=== PATIENT | male | born 1935 | race Caucasian/White ===

== ENCOUNTER 2016-10-05 13:53 | Inpatient (IN) | payer MEDICARE ==
--- NOTE | ~2016-10-05 | CN ---
Consultation Report [facility] [place] [address] [place]. [address] NAME: JARROD DOUGLAS : 35 STATUS : ADM IN PAT#: [id number] AGE: 81 ADM/REG DATE : 10/05/16 MR#: [id number] REPORT SERV DATE: 10/07/16 DICTATED BY: CHRISTIANO MOE III DATE: 10/07/16 REPORT STATUS : Draft TRANSCRIBED BY: MODWilner DATE: 10/07/16 DATE OF CONSULTATION: 10/07/2016 REASON FOR CONSULT: Incomplete emptying of the bladder. HISTORY OF PRESENT ILLNESS: The patient is an 81-year-old gentleman, who has had a history of a prior stroke approximately this time last year. He awoke and had slurred speech and was brought to the emergency room. An MRI was ordered, however, apparently he refused it. CT of the brain was done showing atrophy and apparently no new lesions. He was transferred down to the first floor after his Pearl catheter was removed. I could not find out the original volume, but he was apparently confused and large volume was obtained. His catheter was removed last night and he has had two in and out cath with 400 or greater mL. He was fairly alert, but could not give a detailed history. On history, he had a prostate biopsy in 1999, at which time, his prostate was sizable at 60 mL in volume. He has seen someone in our group, but I could not find a chart. He did not recognize me. He is on Cardura 8 mg, which is pretty much the equivalent of Flomax. He cannot tell me how long he had been on this. His voiding history was difficult to obtain. Apparently, he is up once a night and voids frequently during the daytime. I could not get much more detail than that. He has had no gross hematuria. Denies any recent dysuria or UTIs. His urine, however, today had greater than 182 rbc's and wbc's. Leukocyte esterase was elevated. Bacteria were occasional. PAST MEDICAL HISTORY: Includes diabetes, insulin dependent; hypertension; glaucoma; and prior stroke. He has had no major surgery other than the prostate biopsy to my knowledge. SOCIAL HISTORY: He does not drink or smoke. ALLERGIES: KEFLEX AND BETA BLOCKERS. MEDICATIONS: Reviewed and in the chart and a 10-point review of systems was done, although it was somewhat compromised by his memory. PHYSICAL EXAMINATION: GENERAL: He was alert, somewhat oriented, again could not give me good details. VITAL SIGNS: His most current vital signs were blood pressure 125/60, respirations 18, and pulse of 82. HEENT: Unremarkable. NECK: Supple. LUNGS: Clear. HEART: Had a regular rate and rhythm without murmur or gallop. ABDOMEN: Soft, protuberant. Bowel sounds were present and active. No masses were detected. The bladder was not palpable. GENITOURINARY: Testicles were atrophic. Phallus had a normal meatus, glans, and shaft. Anal sphincter tone was tight. I could not palpate the entire prostate, but it does feel fairly large. No rectal masses were detected. There was minimal pedal edema. Consultation Report [address] [place]. [address] NAME: JARROD DOUGLAS : 35 STATUS : ADM IN [facility]#: [id number] AGE: 81 ADM/REG DATE : 10/05/16 MR#: [id number] REPORT SERV DATE: 10/07/16 DICTATED BY: CHRISTIANO MOE III DATE: 10/07/16 REPORT STATUS : Draft TRANSCRIBED BY: MODWilner DATE: 10/07/16 His most recent lab shows a white count of 11.2. Electrolytes are normal. CT of the abdomen and pelvis has been ordered, but apparently has not been taken. IMPRESSION: Impression is that of an elderly gentleman with large prostate, probably with pre-existing benign prostatic hypertrophy-type symptoms. He now is not emptying. He has been started on Plavix by Neurology and clean intermittent catheterization. Given the fact that his urine is inflammatory, I would defer a Pearl for the next day or two until we get a culture back and make sure the Levaquin he is on will cover the infection. There is also a greater risk, I think, with repetitive catheterizations in a patient with a large prostate and on Plavix. Unfortunately, Pearl trauma can occur as well, but I would rather him be drained until we are certain that we have a culture specific antibiotic. We will follow him and someone in our group will see him in the morning. Thank you for the consult. OB/MODL Christiano Moe III, M.D. / [id number] CC: Sonya Solorzano M.D.
--- NOTE | ~2016-10-05 | CN ---
Consultation Report [facility] [address] [place]. [address] NAME: JARROD DOUGLAS : 35 STATUS : ADM Adrianne PAT#: [id number] AGE: 81 ADM/REG DATE : 10/05/16 MR#: [id number] REPORT SERV DATE: 10/06/16 DICTATED BY: DATE: REPORT STATUS : Draft TRANSCRIBED BY: MODL DATE: 10/06/16 NEUROLOGY CONSULTATION DATE OF CONSULTATION: 10/06/2016 REASON FOR CONSULT: Dysarthria. Concern for stroke. HISTORY OF PRESENT ILLNESS: This is an 81-year-old male who presented to [facility] on 10/05/2016. The patient woke up at roughly 7 a.m., was noted to have dysarthria with slurred speech as well as difficulty getting the words out. The patient's symptoms subsequently improved but is not completely resolved. The patient, when talking, family noticed that the patient still was noted to have slurred speech and periodically have problem getting words out, especially when the patient is talking fast, otherwise the patient and family members denies any focal weakness or numbness. Denies any diplopia and denies any vertigo symptoms. The patient did have similar events around 2010 with the patient noted to have a history of hemorrhage that has subsequently improved by imaging studies. The patient at baseline ambulates with a walker for the past [id number] and a half. The patient denies any changes in medication and denies any recent illness, fever, chills, nausea, vomiting, chest pain, or shortness of breath. The patient and family members deny any worsening of gait. PAST MEDICAL HISTORY: Significant for hypertension, diabetes, as well as glaucoma with the patient noted to have decreased vision in bilateral eyes; history of stroke and intracranial hemorrhage as well as benign prostatic hypertrophy. SOCIAL HISTORY: Denies current tobacco, alcohol, or recreational drug usage. ALLERGIES: THE PATIENT REPORTS ALLERGY TO KEFLEX WELL BETA SALVADOR. HOME MEDICATIONS: Consist of aspirin; p.r.n. Tylenol; Norvasc; calcium carbonate; docusate; Cardura; Glucotrol; Xalatan; Glucophage; Benicar; Prilosec; lactose timolol; and vitamins. FAMILY HISTORY: Significant for coronary artery disease as well as cancer. REVIEW OF SYSTEMS: Negative except for those mentioned in the HPI. PHYSICAL EXAMINATION: VITAL SIGNS: At the time of evaluation, the patient was noted to have vital signs with T- max of 98.1, heart rate of 66 to 98, respirations of 16 to 25, and blood pressure of 160 to 193 over 73 to 92. GENERAL: The patient is well developed, well nourished, in no acute distress. CARDIOVASCULAR EXAMINATION: Regular rate and rhythm. No carotid bruits were otherwise auscultated. PULMONARY: Examination was clear to auscultation bilaterally. NEUROLOGICAL Consultation Report [facility] [id number] [place]. [address] NAME: JARROD DOUGLAS : 35 STATUS : ADM Adrianne PAT#: [id number] AGE: 81 ADM/REG DATE : 10/05/16 MR#: [id number] REPORT SERV DATE: 10/06/16 DICTATED BY: DATE: REPORT STATUS : Draft TRANSCRIBED BY: PHILIP DATE: 10/06/16 EXAMINATION: Generally, the patient is alert, oriented to person, place, year, and month. Mild dysarthria was noted, worse when the patient was stressed. The patient, in addition, was noted to have some difficulties with word-finding difficulties, but otherwise is able to follow simple and 2-step commands and the patient demonstrating intact registration, was noted to have some difficulties with recall. Cranial nerves 2 through 12, pupils equal, round, and reactive to light. Extraocular eye movement was noted to be intact with the patient noted to have diminished peripheral vision in all directions which appeared to be chronic. The patient was noted to report symmetrical sensation, was noted to have symmetrical facial expression. Midline tongue. Normal palatal movement and decreased hearing in bilateral ears. The patient demonstrated 5/5 bilateral upper extremity strength, but was noted to have mild pronator drift in bilateral upper extremities and 5/5 bilateral lower extremity strength at the time of evaluation, was noted to have symmetrical sensation bilaterally. Deep tendon reflex was 2+ throughout. Upgoing toe on bilateral plantar reflexes. The patient was unsteady when standing up. Baseline ambulates with walker. Normal [id number]-[id number] examination without ataxia. LABORATORY STUDIES: Demonstrated white blood cell count of 10.6, hemoglobin of 11.2, hematocrit of 33.3, and platelet count of 362. Chemistry panel: Sodium 142, potassium 3.7, chloride 108, bicarb of 21, BUN of 19, creatinine 1.25, glucose of 99, and calcium of 9.0. Serum magnesium 1.1. Cholesterol 200, HDL 41, LDL of 128, and triglyceride of 159. Hemoglobin A1c of 6.3. Vitamin B12 of 271, folate of 28.6, and TSH of 0.632. Urinalysis demonstrated negative leukocyte esterase, negative nitrite. CT scan of the brain was reviewed, generalized atrophy was seen, otherwise, the patient was noted to have underlying white matter diseases, no acute process was seen; previous hemorrhagic infarction in 2013 was noted to have resolved. Echocardiogram demonstrated no significant abnormalities and no apical thrombus was otherwise noted. Small PFO was visualized during the evaluation. Carotid Doppler study demonstrated no significant carotid stenosis in bilateral internal carotid arteries. IMPRESSION: Dysarthria. Concern for possible subcortical versus brainstem stroke. NIH stroke scale is 2. The patient does demonstrate mild dysarthria as well as word-finding difficulties. We are recommending outpatient speech therapy. We will also start the patient on Plavix 75 mg p.o. daily in addition to aspirin 81 mg p.o. daily. We will also start the patient on Lipitor 80 mg p.o. at bedtime. The patient refused MRI of the brain despite multiple physicians and nursing staff discussed with the patient regarding possible stay. Otherwise okay to discharge from Neuro standpoint. RECOMMENDATION: 1. Plavix 75 mg p.o. daily. 2. Lipitor 80 mg p.o. at bedtime. 3. Aspirin 81 mg p.o. daily. 4. Outpatient speech therapy. 5. Okay to discharge from Neuro standpoint. Consultation Report [address] [address] NAME: JARROD DOUGLAS : 35 STATUS : ADM Adrianne PAT#: [id number] AGE: 81 ADM/REG DATE : 10/05/16 MR#: [id number] REPORT SERV DATE: 10/06/16 DICTATED BY: DATE: REPORT STATUS : Draft TRANSCRIBED BY: PHILIP DATE: 10/06/16 [facility]/PHILIP David Gaines MD / [id number] CC: Cassandra Sonya Farris M.D.
--- NOTE | ~2016-10-05 | DS ---
Discharge Summary [facility] [address] [facility] [place]. [address] NAME: JARROD DOUGLAS : 35 STATUS : DIS IN PAT#: [id number] AGE: 81 ADM/REG DATE : 10/05/16 MR#: [id number] REPORT SERV DATE: 10/08/16 DICTATED BY: BRODY SANDOVAL DATE: 10/08/16 REPORT STATUS : Draft TRANSCRIBED BY: MODL DATE: 10/08/16 ADMISSION DATE: 10/05/2016 DISCHARGE DATE: 10/08/2016 DIAGNOSES ON ADMISSION: 1. Dysarthria, slurred speech, rule out transient ischemic attack versus cerebrovascular accident. 2. History of hypertension. 3. Diabetes type 2, non-insulin dependent. 4. History of glaucoma. 5. History of benign prostatic hypertrophy. 6. History of cerebrovascular accident in the past. DIAGNOSES ON DISCHARGE: 1. Dysarthria at home resolved. On admission, no evidence of dysarthria. 2. Hypertension, controlled. 3. Diabetes mellitus type 2 with fluctuation of blood sugars on multiple oral hypoglycemics. 4. Severely enlarged prostate, most likely benign prostatic hypertrophy, with the voiding dysfunction, discharged with Pearl. Followup with urologist, outpatient. 5. Diarrhea present on admission, resolved. 6. No evidence of urinary tract infection on the second sample taken from the newly placed catheter. 7. Hypertension, controlled. CONSULTANTS ON THE CASE: 1. Neurologist, Dr. Gaines. 2. Urologist, Dr. Christiano Hathaway. IMAGING STUDIES DONE DURING THIS HOSPITALIZATION: Chest x-ray on 10/05/2016: Mild left basilar atelectasis. Otherwise, no acute cardiopulmonary abnormality. Mild enlargement of the cardiac silhouette with evidence of previous coronary artery bypass grafting. CT of the abdomen and pelvis without contrast showed prostate enlargement measuring up to 6.3 cm in transverse diameter and 7.2 cm in craniocaudal diameter, probable BPH, although recommend correlation with PSA level. Prominent median lobe of the prostate causing extrinsic impression in the bladder base. Bladder decompressed with a Pearl catheter. No significant bladder wall thickening. Bilateral nonobstructing nephrolithiasis. A small exophytic cyst in lower pole of the right kidney. Extensive atherosclerotic calcification in abdominal aorta including dense calcified plaque origin is iliac, proximal SMA, and JEREMIAS. No abdominal aortic aneurysm. Echocardiography done on 10/06/2016 showed normal left ventricular systolic function with calculated ejection fraction of 50% to 55%. Mild diastolic dysfunction. Normal left ventricular chamber size and systolic function. Mild tricuspid regurgitation. Agitated saline contrast study consistent with small patent foraminal ovale or atrial septal defect. Discharge Summary [facility] [address] [place]. [address] NAME: JARROD DOUGLAS : 35 STATUS : DIS IN PAT#: [id number] AGE: 81 ADM/REG DATE : 10/05/16 MR#: [id number] REPORT SERV DATE: 10/08/16 DICTATED BY: BRODY SANDOVAL DATE: 10/08/16 REPORT STATUS : Draft TRANSCRIBED BY: MODL DATE: 10/08/16 Bilateral carotid ultrasound did not show any significant blockages. Category [address] of the brain without contrast done on 10/05/2016. There is evidence for significant amount of old deep white matter changes. May wish to consider an MRI followup here. There have been progressive deep white matter ischemic changes. Resolution on stabilization on a hemorrhagic infarction from 2012. HISTORY OF PRESENT ILLNESS: Briefly, this is an 81-year-old male, who was admitted by my colleague, Dr. Kathia Souza for episode of slurred speech in the morning prior admission. For the details, see history of present illness dictated by Dr. Souza on 10/05/2016. HOSPITAL COURSE: Briefly, the patient was seen next day. The patient's slurred speech completely resolved. The patient had problems with urination. He was getting up and going to the bathroom as well as he was having constant bowel movements that day. The patient had urinalysis on admission, which was negative for UTI. Then, the patient's diarrhea was very frequent, and there was a suspicion also for voiding dysfunction on this patient as well. In the same time, the patient was seen by Neurology, and Dr. Gaines recommended the patient to have an MRI of the brain, but the patient multiple times refused to have MRI of the brain. He said that he cannot tolerate MRI even with sedation, so his daughter was informed that the patient refused MRI. Dr. Gaines, neurologist, recommended the patient to be on baby aspirin and Plavix as well as she recommended the patient to be on 80 mg of Lipitor. This was discussed with the patient's daughter, and it was explained that the addition of aspirin to Plavix increases the risk of the bruisability and increases the risk of bleeding, so he have to be careful to avoid falls as well as Lipitor 80 mg, it was explained that it can cause muscular pain and weakness, and in case if the patient has muscular pain or weakness, he needs to seek medical attention. As well as it was explained to the patient's daughter that the patient needs to check his liver enzymes per Dr. Voss in four weeks since he is started on Lipitor. Because of diarrhea on that day, the patient could not be discharged and he basically stayed overnight. He was insisting to be discharged, but he was having diarrhea, so the discharge was held and the daughter also wanted the patient to stay. Eventually, the patient agreed to stay. Next day, his mood has improved. His urinalysis was rechecked by the nurse and it showed surprisingly hematuria with evidence of urinary tract infection. It was very suspicious that the sample is contaminated, so urologist was consulted because the patient still had a voiding dysfunction and episodes of going to the bathroom very often. Dr. Hathaway evaluated the patient's CT scan, so severely enlarged prostate, and he recommended Coude Pearl catheter placement, and the patient to be discharged with a Pearl catheter. In the same time, once Pearl catheter was placed, urine sample was obtained, and urine sample did not show any evidence of urinary infection. It just showed hematuria from the Pearl catheter. The patient was doing well, and Dr. Hathaway recommended the patient to be discharged with a Pearl catheter placement of the home health to take care of the Pearl catheter as well as to follow up with him in 7 to 10 days. The patient was explained that he had to keep Pearl catheter in because he will not be able to void. He was not very happy about it, but subsequently he agreed to have Pearl catheter since he will not go to the Discharge Summary [address] [address] NAME: JARROD DOUGLAS : 35 STATUS : DIS IN PAT#: [id number] AGE: 81 ADM/REG DATE : 10/05/16 MR#: [id number] REPORT SERV DATE: 10/08/16 DICTATED BY: BRODY SANDOVAL DATE: 10/08/16 REPORT STATUS : Draft TRANSCRIBED BY: PHILIP DATE: 10/08/16 bathroom so often. In the same time, on the next day, he was doing well, and he was afebrile, doing well, so me and Dr. Hathaway recommended the patient to be discharged today. The patient was offered inpatient rehabilitation like SNF, and his daughter also wanted the patient to stay with her, but the patient refused multiple times to go with the daughter or to go to inpatient rehab. He wanted to go home. I had a long discussion with the patient's daughter and son-in-low. They were also very concerned about the patient going to stay at his assisted living, but the patient was reluctant to go with them also. I told the patient's family that they need to find some arrangement somebody to be with him especially in the situation when has a Pearl catheter placement and his blood sugar needs to be monitored as well. Regarding the patient's diabetes, the patient is on glipizide 10 mg twice a day. He is on metformin as well as he is on Actos. He is 81 years old. He is on multiple antidiabetic medications which could potentially make him hypoglycemic. The patient was observed here inpatient and his glipizide was reduced to 5 mg a day, but his blood sugar was still elevated. We were giving him insulin sliding scale in addition to glipizide, so it was recommended to continue his morning glipizide at a dose of 10 mg a day, but it was recommended to reduce evening glipizide at 5 mg a day as well as it was explained that if the patient is having nausea, vomiting, or not eating much, his antidiabetic medication should be kept on hold because they can cause potential hypoglycemia as well as the patient is on Actos, which was recommended to restart if blood sugar will be above 200 on glipizide and also it was recommended to discuss with the patient's primary care provider, Rianna Voss M.D., regarding side effects of Actos such as potential risk of development of urinary bladder cancer and congestive heart failure. The patient's blood sugar eventually came down, it was 182 at noon, and the patient was discharged home. Also, the patient had leukocytosis this morning, although yesterday his white count was mildly elevated like 11.2, today it was 15.3, he was afebrile. I think this is related to Pearl catheter placement. He does not have urinary infection, but because of this leukocytosis, we recommended to continue Levaquin for four more days. The patient's son also reported that he had some short lasting hallucinations in visual character this morning. It was explained to them that it could be related to antibiotics, but since patient is allergic to cephalosporins, we recommended short course of Levaquin. If the patient is really intolerant of Levaquin, if the hallucinations will be increasing, we recommended to stop Levaquin and call primary care physician, Dr. Voss, to change antibiotic. Also, he needs to follow up with Dr. Rianna Voss to check his CBC next week. The patient was offered to stay one more day, but he was eager to go home. He was reluctant to stay one more day. He refused any rehab. He refused MRI of the brain. He wanted to go home, and once again I explained to the family that the patient is a fall risk as well as his blood sugar needs to be controlled, so somebody needs to stay with him, and they said that they are going to make an arrangement for somebody to stay with him. DISCHARGE MEDICATIONS: Norvasc 10 mg a day, aspirin 81 mg a day, Lipitor 80 mg a day, Cardura 8 mg a day, glipizide 10 mg in the morning and 5 mg in the evening, metformin 850 p.o. b.i.d., Xalatan eye drops daily, Benicar with HCTZ 40/12.5 p.o. daily, omeprazole 20 mg a day, calcium carbonate 500 mg a day, Tylenol 650 mg dose as needed for pain, vitamins daily, Colace 100 mg a day, Actos was recommended to restart if blood sugar is above 200 on Discharge Summary [facility] [id number] [place]. [address] NAME: JARROD DOUGLAS : 35 STATUS : DIS IN PAT#: [id number] AGE: 81 ADM/REG DATE : 10/05/16 MR#: [id number] REPORT SERV DATE: 10/08/16 DICTATED BY: BRODY SANDOVAL DATE: 10/08/16 REPORT STATUS : Draft TRANSCRIBED BY: PHILIP DATE: 10/08/16 glipizide, timolol 1 drop daily twice a day, and Levaquin 750 mg p.o. daily for four days. Check CBC per Dr. Voss next week. Check liver enzymes in four weeks per Dr. Voss. The patient was discharged with a Pearl catheter. Home health was arranged. He has an appointment with Dr. Hathaway on 10/16/2016 to decide on further Pearl catheter strategy. He has an appointment with Dr. Voss on 10/15/2016. The patient was discharged in stable condition. Once again, it was explained to the family that they need to stay with him. I spent 45 minutes on discharge. DICTATED BY: Sonya Solorzano/MODL Brody Sandoval M.D. / [id number] CC: Sonya Solorzano M.D. Oliver Benton III, M.D.
--- NOTE | ~2016-10-05 | HP ---
History And Physical [facility] [address] [place] [place]. [address] NAME: JARROD DOUGLAS : 35 STATUS : ADM Adrianne PAT#: [id number] AGE: 81 ADM/REG DATE : 10/05/16 MR#: [id number] REPORT SERV DATE: 10/05/16 DICTATED BY: KATHIA BUSH DATE: 10/05/16 REPORT STATUS : Draft TRANSCRIBED BY: MODL DATE: 10/05/16 DATE OF ADMISSION: 10/05/2016 CHIEF COMPLAINT: Slurred speech starting this morning. HISTORY OF PRESENT ILLNESS: This is a very pleasant 81 years old gentleman who does have a past medical history significant for prior stroke, history of diabetes type 2, insulin dependent, hypertension, and history of glaucoma, who has been presenting today to [facility] accompanied by his daughter with complaints of slurred speech starting this morning. According to the patient, he woke up this morning and his words were difficult to come out. He did not have any headache. No dysphagia. No double vision. No weakness or any focal deficits. No nausea or vomiting. No diarrhea or constipation. No abdominal pain. No presyncopal or syncopal episodes. No fever. No cough. No sputum production. No other complaints. It is very important to note that the patient has been using a walker and he has been very functional. His symptoms improved according to the patient, but still he has remained somewhat dysarthric and as a result, the patient has been brought to [facility] Emergency Room. Currently, the patient has been evaluated in the emergency room, and the Hospitalist Service has been asked for admission, further evaluation, and treatment. PAST MEDICAL HISTORY: Significant for hypertension, diabetes, history of glaucoma history of CVA, and BPH. PAST SURGICAL HISTORY: None. PAST SOCIAL HISTORY: Denies tobacco, alcohol, or IV drugs. ALLERGIES: HE IS ALLERGIC TO KEFLEX AND BETA BLOCKERS. FAMILY HISTORY: Significant for coronary artery disease and cancer. MEDICATIONS: At home include Tylenol, Norvasc, aspirin, calcium carbonate, docusate sodium, Cardura, Glucotrol, Xalatan ophthalmic solution, metformin, Benicar, hydrochlorothiazide, Prilosec, Actos, timolol, and multivitamins. REVIEW OF SYSTEMS: A 14-point review of systems has been obtained and pertinent positive has been listed into the history of present illness. Otherwise, negative except those underlying above. PHYSICAL EXAMINATION: VITAL SIGNS: Currently, the patient is afebrile. Blood pressure 172/59, heart rate 75, respiratory rate 17, and saturating 100% on room air. GENERAL: A very pleasant, well-developed, well-nourished gentleman, in no acute distress. NEUROLOGIC: He is alert and oriented x3. He is nonfocal. He follows all his commands appropriately. HEENT: Shows pupils equal, round, reactive to light. Extraocular movements intact. No JVD. No lymphadenopathy. No thyromegaly appreciated. History And Physical [address] [address] NAME: JARROD DOUGLAS : 35 STATUS : ADM Adrianne PAT#: [id number] AGE: 81 ADM/REG DATE : 10/05/16 MR#: [id number] REPORT SERV DATE: 10/05/16 DICTATED BY: KATHIA BSUH DATE: 10/05/16 REPORT STATUS : Draft TRANSCRIBED BY: PHILIP DATE: 10/05/16 CHEST: Eval shows bilateral air entry. Clear anteroposterior. No wheezes, crackles, or rhonchi appreciated. CARDIOVASCULAR: He has regular rate and rhythm. S1, S2 positive. No S3, no S4. No murmurs, rubs, or gallops appreciated. ABDOMEN: Soft with positive bowel sounds. Nontender. No guarding. No rebound. EXTREMITIES: No clubbing, cyanosis, or edema. NEUROLOGIC: He is alert and oriented x3. He is dysarthric. He does have slurred speech. Cranial nerves are intact. He follows all his commands appropriately. LABORATORY DATA: Labs from today include sodium 142, potassium 4.1, chloride 106, CO2 of 23, BUN 19, creatinine 1.22, and glucose is 236. His total bilirubin is 0.4, alkaline phosphatase 71, ALT 14, AST 16, troponin I less than 0.02. His white count is 10.9, his hemoglobin is 11.3, hematocrit 33.8, and platelets are 349. His INR is 1. His UA performed in the emergency room has been negative. His EKG has shown that he is normal sinus rhythm. No acute ST-T changes. His chest x-ray, portable, performed in the emergency room shows some mild basilar atelectasis. No acute abnormalities and mild enlarged cardiac silhouette. CT of the brain without contrast showed some significant amount of old white deep matter changes progressive and prior resolution and stabilization of nonhemorrhagic infarction from 2013. ASSESSMENT AND PLAN: This is a very pleasant 81 years old gentleman with 1. Dysarthria, rule out TIA versus CVA. 2. History of hypertension. 3. Diabetes type 2, noninsulin dependent. 4. History of glaucoma. 5. History of BPH. 6. History of CVA. PLAN: 1. The patient is going to be admitted to Hospitalist Service. We are going to place him on a full aspirin and order an MRI of the brain, 2D echo, and carotid ultrasound. We are going to rule out for NC by serial cardiac enzymes, serial EKGs. Consult Neurology, Dr. Gaines. Check on vitamin B12, folic acid, hemoglobin A1c, and a fasting lipid profile. 2. Hypertension. We will continue his home medications. Provide p.r.n. hydralazine as needed. 3. Diabetes type 2, noninsulin dependent. We are going to place him on diabetic diet, Accu- Cheks before meals and at bedtime, and sliding scale insulin subcutaneously level 2. Hold the metformin and Actos and Glucotrol for right now. 4. Glaucoma. We are going to continue home medications. 5. We will provide reasonable pain, nausea control, GI and DVT prophylaxis. That has been discussed extensively with the patient as well as the patient's family. All the questions have been answered in full. Further workup and recommendation pending. It is worthwhile to note that patient is going to be followed up by the hospital service. History And Physical [address] [address] NAME: JARROD DOUGLAS : 35 STATUS : ADM Adrianne PAT#: [id number] AGE: 81 ADM/REG DATE : 10/05/16 MR#: [id number] REPORT SERV DATE: 10/05/16 DICTATED BY: KATHIA BUSH DATE: 10/05/16 REPORT STATUS : Draft TRANSCRIBED BY: PHILIP DATE: 10/05/16 CF/PHILIP Kathia Bush M.D. / [id number] CC: Cassandra Farris M.D.
[2016-10-05 13:51] LABS: BASOPHILS 0.1 %; BASOPHILS ABSOLUTE 0.01 10/3/uL (0.0-0.16); EOSINOPHILS 0.8 %; EOSINOPHILS ABSOLUTE 0.09 10/3/uL (0.0-0.53); HEMOGLOBIN 11.3 g/dL (13.6-17.8); IMMATURE GRANULOCYTES 0.3 %; IMMATURE GRANULOCYTES ABSOLUTE 0.03 10/3/uL (0.0-0.11); LYMPHOCYTES 13.9 %; LYMPHOCYTES ABSOLUTE 1.51 10/3/uL (0.67-4.30); MEAN CORPUS HGB CONC 33.4 g/dL (32.0-36.0); MEAN CORPUSCULAR HEMOGLOB 28.8 pg (26.0-34.0); MONOCYTES ABSOLUTE 0.76 10/3/uL (0.21-1.20); NEUTROPHILS 77.9 %; PLATELET COUNT 349 10/3/uL (150-400); RED CELL COUNT 3.93 10/6/uL (4.7-6.1); WHITE BLOOD CELLS 10.9 10/3/uL (4.5-10.5)
[2016-10-05 13:52] LABS: HEMATOCRIT 33.8 % (40.0-51.0); MANUAL DIFF NO %
[2016-10-05 13:53] LABS: ER CBC TAT 0 Hrs 05 Mins
[~2016-10-05 13:53] MED LIST: 8 HOUR650 MG PO; ACTOS45 PO; ASA5GR PO; ASAB PO; BENICAR HCT1 TA1 PO; BENICAR20 PO; CARDURA XL8 MG PO; CARDURA8 MG PO; CRESTOR10 PO; DSS PO; GLUCOTRO10 PO; GLUCPH8 PO; GLUCXL10 PO; HALF81 PO; HCTZ25B PO; LIPITOR20 PO; MULTIPLE VIT PO; NORV10 PO; OTC STOOL SOFTENER; PRESERVISION; PRESERVISION A1 EAC1 PO; PRILO PO; STOOL SOFTEN100 MG PO; THERAPEUTIC PO; TIMOLOL MAL0.5 % OPH; TUMSROLL PO; TYLENOL ARTH650 MG PO; VITAMIN D31000 UNIT PO; XALAT OPH
[2016-10-05 13:57] LABS: PARTIAL THROMBO TIME 26.9 SEC (22.5-37.2); PROTIME (NOT ORD) 12.8 SEC (12.0-14.5)
[2016-10-05 14:10] LABS: ALBUMIN 3.4 G/DL (3.5-5.0); ALKALINE PHOSPHATASE 71 U/L (45-117); CALCIUM, SERUM 8.7 MG/DL (8.5-10.4); CHLORIDE, SERUM 106 MMOL/L (96-112); CO2 (CARBON DIOXIDE) 23 MMOL/L (24-34); CREATININE 1.22 MG/DL (0.70-1.30); GFR AFRICAN AMERICAN 64 ML/MIN (>=60); GFR NON AFRICAN AMERICAN 55 ML/MIN (>=60); GLOBULIN 3.3 G/DL (2.5-4.1); GLUCOSE, SERUM 236 MG/DL (60-99); POTASSIUM, SERUM 4.1 MMOL/L (3.5-5.3); SGPT(ALT) 14 U/L (5-65); SODIUM, SERUM 142 MMOL/L (135-148); TOTAL BILIRUBIN 0.4 MG/DL (0-1.2); TOTAL PROTEIN 6.7 G/DL (6.0-8.5); TROPONIN I <0.02 NG/ML (<0.05)
[2016-10-05 14:11] LABS: BUN (BLOOD UREA NITROGEN) 19 MG/DL (6-23); SGOT(AST) 16 U/L (5-40)
[2016-10-05 14:53] LABS: ASCORBIC ACID (UR NOT ORDER) 40 (NEG); BILIRUBIN, URINE NEGATIVE (NEG); ER URINALYSIS TAT 0 Hrs 12 Mins; KETONE, URINE NEGATIVE (NEG); LEUKOCYTE ESTERASE(NOT OR NEG (NEG); NITRITE (URINE) NEG (NEG); WBC (NOT ORDERED) (RFLEX) 3 (0-5)
[2016-10-05 19:22] LABS: FERRITIN 14 NG/ML (26-388); FOLATE 28.6 NG/ML (>5.2); ULTRASENSITIVE TSH 0.632 MCIU/ML (0.358-3.740)
[2016-10-05 19:33] LABS: IRON BINDING CAPACITY 336 MCG/DL (250-450); IRON, SERUM 47 MCG/DL (35-150)
[2016-10-05 21:18] LABS: CPK 70 U/L (0-200); TROPONIN I <0.02 NG/ML (<0.05)
[2016-10-05 21:19] LABS: CK-MB 2.7 NG/ML
[2016-10-06 05:03] LABS: BASOPHILS 0.3 %; BASOPHILS ABSOLUTE 0.03 10/3/uL (0.0-0.16); EOSINOPHILS 1.3 %; EOSINOPHILS ABSOLUTE 0.14 10/3/uL (0.0-0.53); HEMATOCRIT 33.3 % (40.0-51.0); HEMOGLOBIN 11.2 g/dL (13.6-17.8); IMMATURE GRANULOCYTES 0.4 %; IMMATURE GRANULOCYTES ABSOLUTE 0.04 10/3/uL (0.0-0.11); LYMPHOCYTES 15.3 %; LYMPHOCYTES ABSOLUTE 1.62 10/3/uL (0.67-4.30); MEAN CORPUS HGB CONC 33.6 g/dL (32.0-36.0); MEAN CORPUSCULAR HEMOGLOB 28.7 pg (26.0-34.0); MEAN CORPUSCULAR VOLUME 85.4 fL (80-100); MONOCYTES 9.5 %; MONOCYTES ABSOLUTE 1.01 10/3/uL (0.21-1.20); NEUTROPHILS 73.2 %; NEUTROPHILS ABSOLUTE 7.78 10/3/uL (2.02-8.40); PLATELET COUNT 362 10/3/uL (150-400); WHITE BLOOD CELLS 10.6 10/3/uL (4.5-10.5)
[2016-10-06 05:07] LABS: MANUAL DIFF NO %
[2016-10-06 05:10] LABS: CHOL/HDL RATIO(NOT ORDER) 4.9 (0-5); CHOLESTEROL 200 MG/DL (< 200); CK-MB 4.4 NG/ML; CPK 245 U/L (0-200); HDL CHOLESTEROL 41 MG/DL (> 39); LDL CHOLESTEROL 128 MG/DL (< 130); NON-HDL CHOLESTEROL 159 MG/DL (< 160); TRIGLYCERIDE 159 MG/DL (< 150); TROPONIN I <0.02 NG/ML (<0.05)
[2016-10-06 05:12] LABS: PARTIAL THROMBO TIME 28.8 SEC (22.5-37.2)
[2016-10-06 11:19] LABS: BUN (BLOOD UREA NITROGEN) 19 MG/DL (6-23); CHLORIDE, SERUM 108 MMOL/L (96-112); CO2 (CARBON DIOXIDE) 21 MMOL/L (24-34); CREATININE 1.25 MG/DL (0.70-1.30); GFR AFRICAN AMERICAN 62 ML/MIN (>=60); GFR NON AFRICAN AMERICAN 54 ML/MIN (>=60); GLUCOSE, SERUM 99 MG/DL (60-99); POTASSIUM, SERUM 3.7 MMOL/L (3.5-5.3); SODIUM, SERUM 142 MMOL/L (135-148)
[2016-10-06 13:54] LABS: CK-MB 8.6 NG/ML; CKMB INDEX (NOT ORD) 1.3; CPK 666 U/L (0-200); TROPONIN I <0.02 NG/ML (<0.05)
[2016-10-07 03:51] LABS: HEMATOCRIT 32.5 % (40.0-51.0); MEAN CORPUS HGB CONC 33.8 g/dL (32.0-36.0); MEAN CORPUSCULAR HEMOGLOB 28.6 pg (26.0-34.0); MEAN CORPUSCULAR VOLUME 84.6 fL (80-100); MEAN PLATELET VOLUME 9.8 fL (9.2-13.0); PLATELET COUNT 334 10/3/uL (150-400); RBC DISTRIBUTION WIDTH 15.3 % (12.0-16.0); RED CELL COUNT 3.84 10/6/uL (4.7-6.1); WHITE BLOOD CELLS 11.2 10/3/uL (4.5-10.5)
[2016-10-07 03:52] LABS: MANUAL DIFF YES %
[2016-10-07 04:00] LABS: BUN (BLOOD UREA NITROGEN) 19 MG/DL (6-23); CALCIUM, SERUM 9.1 MG/DL (8.5-10.4); CHLORIDE, SERUM 107 MMOL/L (96-112); CO2 (CARBON DIOXIDE) 24 MMOL/L (24-34); CREATININE 1.15 MG/DL (0.70-1.30); GFR AFRICAN AMERICAN 69 ML/MIN (>=60); GFR NON AFRICAN AMERICAN 59 ML/MIN (>=60); POTASSIUM, SERUM 3.8 MMOL/L (3.5-5.3); SODIUM, SERUM 142 MMOL/L (135-148)
[2016-10-07 04:01] LABS: GLUCOSE, SERUM 180 MG/DL (60-99)
[2016-10-07 04:13] LABS: BAND NEUTROPHILS 1 %; LYMPHOCYTES 11 %; LYMPHOCYTES ABSOLUTE (CALC) 1.23 10/3/uL (0.67-4.30); MONOCYTES 6 %; MONOCYTES ABSOLUTE (CALC) 0.67 10/3/uL (0.21-1.20); PLATELET ESTIMATE ADQ (ADEQUATE); RBC MORPHOLOGY NORM (NORMAL); SEGMENTED NEUTROPHIL (0) 82 %; TOTAL NUCLEATED CELLS 100
[2016-10-07 08:04] LABS: ASCORBIC ACID (UR NOT ORDER) NEG (NEG); BILIRUBIN, URINE NEGATIVE (NEG); KETONE, URINE TRACE MG/DL (NEG); LEUKOCYTE ESTERASE(NOT OR MOD (NEG)
[2016-10-07 08:05] LABS: WBC (NOT ORDERED) (RFLEX) > 182 (0-5)
[2016-10-07 16:10] LABS: ASCORBIC ACID (UR NOT ORDER) NEG (NEG); BILIRUBIN, URINE NEGATIVE (NEG); KETONE, URINE TRACE MG/DL (NEG); LEUKOCYTE ESTERASE(NOT OR NEG (NEG); WBC (NOT ORDERED) (RFLEX) 1 (0-5)
[2016-10-08 05:43] LABS: BASOPHILS 0.1 %; BASOPHILS ABSOLUTE 0.02 10/3/uL (0.0-0.16); EOSINOPHILS 0.1 %; EOSINOPHILS ABSOLUTE 0.02 10/3/uL (0.0-0.53); HEMATOCRIT 32.4 % (40.0-51.0); HEMOGLOBIN 10.9 g/dL (13.6-17.8); IMMATURE GRANULOCYTES 0.3 %; IMMATURE GRANULOCYTES ABSOLUTE 0.05 10/3/uL (0.0-0.11); LYMPHOCYTES 9.7 %; LYMPHOCYTES ABSOLUTE 1.48 10/3/uL (0.67-4.30); MEAN CORPUS HGB CONC 33.6 g/dL (32.0-36.0); MEAN CORPUSCULAR HEMOGLOB 28.5 pg (26.0-34.0); MEAN CORPUSCULAR VOLUME 84.8 fL (80-100); MEAN PLATELET VOLUME 9.3 fL (9.2-13.0); MONOCYTES 7.9 %; MONOCYTES ABSOLUTE 1.21 10/3/uL (0.21-1.20); NEUTROPHILS 81.9 %; NEUTROPHILS ABSOLUTE 12.55 10/3/uL (2.02-8.40); PLATELET COUNT 318 10/3/uL (150-400); RBC DISTRIBUTION WIDTH 15.5 % (12.0-16.0); RED CELL COUNT 3.82 10/6/uL (4.7-6.1); WHITE BLOOD CELLS 15.3 10/3/uL (4.5-10.5)
[2016-10-08 05:50] LABS: MANUAL DIFF NO %
[2016-10-08 05:53] LABS: BUN (BLOOD UREA NITROGEN) 17 MG/DL (6-23); CALCIUM, SERUM 8.9 MG/DL (8.5-10.4); CHLORIDE, SERUM 109 MMOL/L (96-112); CO2 (CARBON DIOXIDE) 23 MMOL/L (24-34); GFR AFRICAN AMERICAN 73 ML/MIN (>=60); GFR NON AFRICAN AMERICAN 63 ML/MIN (>=60); GLUCOSE, SERUM 215 MG/DL (60-99); SODIUM, SERUM 142 MMOL/L (135-148)
[2016-10-08] MEDS ORDERED: LEVAQUIN750 MG PO (09:55)
[2016-10-08] MEDS ORDERED: PLAVIX PO (09:58)
[2016-10-08] MEDS ORDERED: LIPITOR80 MG PO (09:58)
[2016-10-09] MEDS ORDERED: GLUCOTROL5 PO (14:43)
== END 2016-10-08 15:40 | disposition home health service (06) | DRG 726 ==
LOC: ER 13:53 → CDU1 16:48 → CDU2 17:25 → 1SO 10-07 10:13
PROVIDERS: Emergency Medicine; Hospitalist
DX: N40.1 Benign prostatic hyperplasia with lower urinary tract symptoms (principal); Q21.1 Atrial septal defect; E11.9 Type 2 diabetes mellitus without complications; R33.8 Other retention of urine; R19.7 Diarrhea, unspecified; R47.81 Slurred speech; I10 Essential (primary) hypertension; H40.9 Unspecified glaucoma; E83.42 Hypomagnesemia; Z86.73 Personal history of transient ischemic attack (TIA), and cerebral infarction without residual deficits; Z79.82 Long term (current) use of aspirin; Z79.84 Long term (current) use of oral hypoglycemic drugs
CPT/HCPCS: 70450; 71010; 74176; 80048; 80053; 80061; 81001; 82140; 82550; 82553; 82607; 82728; 82746; 82962; 83036; 83540; 83550; 83615; 83735; 83880; 84100; 84443; 84484; 85025; 85610; 85730; 87086; 93005; 93306; 93880; 94640; 99285; A9270-GY; J0360; J1630; J1956; J3475; J3486

== ENCOUNTER 2016-10-09 12:36 | Inpatient (IN) | payer MEDICARE ==
--- NOTE | ~2016-10-09 | DS ---
Discharge Summary [facility] [address] [facility] [place]. [address] NAME: JARROD DOUGLAS : 35 STATUS : ADM IN PAT#: [id number] AGE: 81 ADM/REG DATE : 10/09/16 MR#: [id number] REPORT SERV DATE: 10/16/16 DICTATED BY: OJ NUNN DATE: 10/15/16 REPORT STATUS : Draft TRANSCRIBED BY: MODL DATE: 10/15/16 ADMISSION DATE: 10/09/2016 DISCHARGE DATE: 10/15/2016 CONDITION ON DISCHARGE: Stable. DISPOSITION: Discharged to most likely an inpatient rehab. DIAGNOSES ON DISCHARGE: 1. Acute urinary retention secondary to severe benign prostatic hypertrophy - the patient will need transurethral resection of the prostate for him to able to be Pearl catheter free. Dr. Hathaway, the urologist, is following the patient. If no transurethral resection of the prostate is planned within the next 24 hours, plan is to send the patient to an inpatient rehab and have Dr. Hathaway schedule a date so that the patient can have transurethral prostatic resection, so his urinary retention can be resolved. 2. Mild chronic encephalopathy from chronic dementia, likely secondary to old strokes and vascular dementia and Parkinson disease, newly diagnosed in this admission. The patient has been doing well with Sinemet per Neurology advice. 3. Old cerebrovascular accident. 4. Acute kidney injury, resolved. 5. Leukocytosis, persisting, but the patient has already received several rounds of antibiotics including seven days of IV Rocephin, so I would like to stop his antibiotics at this time. Even if he has urine that shows some leukocyte esterase and wbc's probably because of chronic Pearl and we do not treat infections that are catheter related unless the patient has a fever. He does not look septic, so he does not need any more antibiotics. As mentioned above, other chronic diagnoses include an old cerebrovascular accident and chronic moderate vascular dementia. BRIEF HOSPITAL COURSE: The patient is a very pleasant 81-year-old male patient, who was readmitted after recently being discharged on 10/09/2016. The patient actually had accidentally pulled out his Pearl catheter and came in with hematuria from Pearl catheter trauma. The Pearl was reinserted on the patient. Dr. Hathaway, Urology, was reconsulted and after the patient was given several rounds of bladder wash/flushing, his hematuria resolved. The patient, however, continues to need Pearl catheter as he does have acute on chronic urinary retention from BPH. Dr. Hathaway is aware. In the meantime, as the patient was confused and daughter was concerned about frequent falls that the patient had had and inability to care for himself, we obtained an MRI of the brain for his encephalopathy. MRI did not show any acute stroke, but did show several old vascular strokes and also dementia. In addition to that, as one of the old strokes had affected his basal ganglia, he probably developed Parkinson disease from that. Neurology was promptly consulted and the patient was started on Sinemet. With the addition of Sinemet, the patient's rigidity and movements have slightly improved, mental status has very slightly improved, but the patient still remains somewhat confused. So, the next plan in this patient is to do a TURP, so his Pearl catheter can come out permanently; and however, he will need inpatient rehab for at least some time Discharge Summary [address] [address] NAME: JARROD DOUGLAS : 35 STATUS : ADM IN PAT#: [id number] AGE: 81 ADM/REG DATE : 10/09/16 MR#: [id number] REPORT SERV DATE: 10/16/16 DICTATED BY: OJ NUNN DATE: 10/15/16 REPORT STATUS : Draft TRANSCRIBED BY: PHILIP DATE: 10/15/16 while he is able to learn to be more independent with his activities of daily living. The most recent labs I have on this patient include the following: On 10/14/2016, his BUN is 17 and creatinine is normal at 0.9. Hematuria has completely resolved. WBC is 15.3, for some reason, his leukocytosis is persisting, but I would not treat it further with any more antibiotics as he has received Levaquin before he came in and he has received seven doses of Rocephin after he has come in to. I do not want to put him at risk for C. diff at this time. Hemoglobin is 9.8 and hematocrit is 28.8, which are pretty stable. His INR is 1.1. His troponin I is normal. Electrolytes are normal. Medications that he will be discharged on include the following: He will be on amlodipine 10 mg once a day, aspirin 81 mg once a day, Plavix 75 mg once a day, Lipitor 80 mg once a day, Sinemet 25/100 half a tablet p.o. t.i.d., vitamin B12 injection, Cardura 8 mg once a day, Glucotrol 10 mg before breakfast and 5 mg with supper, sliding scale insulin, Protonix 40 mg once a day, and timolol ophthalmic drops. Other than that, all his other home medications have been discontinued. These are medications that he has been on in the hospital and these will be continued. Specifically, his Benicar/HCT had been discontinued because of the acute kidney injury and it continues to be held and his blood pressure, however, is doing fairly good without it. This is my discharge summary, and I have spent about 35 to 40 minutes in coordinating discharge care of this patient including [id number] encounter, reconciling labs, reconciling medications, and summarizing this discharge. DICTATED BY: Sonya Rhodes/PHILIP Oj Nunn M.D. / [id number] CC: Sonya Rhodes M.D.
--- NOTE | ~2016-10-09 | CN ---
Consultation Report [facility] [address] [facility] [place]. [address] NAME: JARROD DOUGLAS : 35 STATUS : ADM IN PAT#: [id number] AGE: 81 ADM/REG DATE : 10/09/16 MR#: [id number] REPORT SERV DATE: 10/11/16 DICTATED BY: DANIELLE JAIN DATE: 10/11/16 REPORT STATUS : Draft TRANSCRIBED BY: MODL DATE: 10/11/16 NEUROLOGY CONSULTATION DATE OF CONSULTATION: 10/11/2016 REASON FOR CONSULTATION: Possible Parkinson disease, history of previous hemorrhagic stroke and vascular dementia. HOSPITALIST: Siena Zheng M.D. HISTORY OF PRESENT ILLNESS: The patient is an 81-year-old male, who was admitted to the hospital on 10/09 due to gross hematuria. Apparently, the patient went home with a Pearl catheter inserted and pulled the catheter out. Consequently, he had gross hematuria and was brought back through the emergency room only to be readmitted. Once he was readmitted, Dr. Zheng was concerned that the patient may have Parkinson disease, resultant from multiple previous strokes. PAST MEDICAL HISTORY: Hypertension, coronary artery disease, previous left thalamic hemorrhagic stroke with multiple ischemic strokes noted on MRI, vascular dementia, chronic encephalopathy, BPH, urinary retention, diabetes mellitus type 2, and glaucoma. PAST SURGICAL HISTORY: Coronary artery bypass grafting and appendectomy. HOME MEDICATION LIST: Consists of Norvasc 10 mg daily, aspirin 81 mg daily, Lipitor 80 mg at bedtime, Tums 500 mg p.r.n., Plavix 75 mg daily, Colace 200 mg at bedtime, Cardura 8 mg daily, Glucotrol 10 mg a.c. and 5 mg with supper, Xalatan ophthalmic solution one drop both eyes daily, Levaquin 750 mg daily x4, metformin 850 mg b.i.d., Benicar HCT 40/12.5 mg daily, Prilosec 20 mg daily, Actos 45 mg daily, timolol one drop both eyes b.i.d., PreserVision two softgel capsules b.i.d. ALLERGIES: KEFLEX AND BETA-BLOCKERS. SOCIAL HISTORY: The patient is . He lives by himself. He has two daughters. 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 He does not smoke, drink, alcohol, or use illicits. FAMILY HISTORY: The patient's mother at 88 from Alzheimer's. His father at the age of 70 from an [place]. He has one brother who is 84, alive, and fairly healthy. REVIEW OF SYSTEMS: Please refer to HPI. PHYSICAL EXAMINATION: VITAL SIGNS: The patient is afebrile. He has a heart rate of 75, respiratory rate 18, O2 Consultation Report [address] [place]. [address] NAME: JARROD DOUGLAS : 35 STATUS : ADM IN PAT#: [id number] AGE: 81 ADM/REG DATE : 10/09/16 MR#: [id number] REPORT SERV DATE: 10/11/16 DICTATED BY: DANIELLE JAIN DATE: 10/11/16 REPORT STATUS : Draft TRANSCRIBED BY: PHILIP DATE: 10/11/16 sats on room air are 95%, blood pressure is 136/58. He stands 5 feet 8 inches tall and weighs 168 pounds. NEURO: The patient is alert. He is oriented x4. Pleasant. He is hypophonic. He has hypomimia, diminished blink, bradykinesia, bradyphrenia, slight right eye ptosis. He has decreased nasolabial fold on the right, compared to the left. No other cranial nerve abnormalities. [id number], no ataxia bilaterally. He does have a pronator drift on the right. No reported sensory deficits. DTRs in the upper extremities are 2+ bilaterally. Lower extremity strength is a 3/5 bilaterally. No reported sensory deficits. Patellar reflexes 1+ bilaterally. Upgoing toes on the right, downgoing on the left. The patient cannot get out of bed without much assistance. He is a total assist. He states that he uses a walker at home for balance. NECK: No carotid bruits, JVD, or thyromegaly. CHEST: Lung sounds clear. Diminished in the bases. CARDIAC: Regular rate and rhythm. LABORATORY DATA: CBC: White count is 17.5. BMP: Creatinine 1.44, glucose 246. Urinalysis is positive for a UTI. MRI of the brain shows an old left thalamic hemorrhage and some ventriculomegaly. Echocardiogram on 10/06 showed an LVEF of 55% and a small PFO. Carotid duplex study, category 1 bilaterally. CPK is 666. Folate level normal. B12 of 271. Cholesterol values are elevated. A1c is 6.3. ASSESSMENT/PLAN: 1. Probable Parkinson disease. At this point, I will start the patient on low-dose Sinemet (carbidopa/levodopa) 25/100 mg half a tablet t.i.d. at 8 a.m., 12 p.m., and 4 p.m., he is to take this with food. PT/OT will be consulted to evaluate and treat the patient's. Speech Therapy will be consulted. Most likely, he has some dysphagia if he has Parkinson disease, also for his hypophonia. Case Management will be consulted to evaluate his home situation since he does not get around very well and he is living by himself. 2. History of hemorrhagic stroke in the left thalamus. Again, PT/OT and Speech Therapy will be consulted. 3. B12 deficiency, most likely secondary to metformin therapy. Since he will be on metformin chronically, he will be replaced with IM injections of cyanocobalamin 1000 mcg/mL. 4. Vascular dementia. The patient will have a Neurology outpatient visit scheduled for Parkinson's evaluation and also for dementia evaluation. 5. Small patent foramen ovale on echocardiogram. The patient was on Plavix and aspirin prior to admission. However, he has had gross hematuria. Those two medications are being held. I would like him to start back on aspirin 81 mg if okay with hospitalist. 6. Urinary tract infection, this is being treated per hospitalist. 7. Gross hematuria secondary to trauma, being managed per hospitalist. Thank you again for including us in consultation, we will follow with you. Consultation Report [address] [address] NAME: JARROD DOUGLAS : 35 STATUS : ADM IN [facility]#: [id number] AGE: 81 ADM/REG DATE : 10/09/16 MR#: [id number] REPORT SERV DATE: 10/11/16 DICTATED BY: DANIELLE JAIN DATE: 10/11/16 REPORT STATUS : Draft TRANSCRIBED BY: PHILIP DATE: 10/11/16 DANII/PHILIP Danielle Jain DNP, [facility] / [id number] CC: Sonya Rhodes M.D.
--- NOTE | ~2016-10-09 | DS ---
Discharge Summary [facility] [address] [place]. [address] NAME: JARROD DOUGLAS : 35 STATUS : DIS IN PAT#: [id number] AGE: 81 ADM/REG DATE : 10/09/16 MR#: [id number] REPORT SERV DATE: 10/16/16 DICTATED BY: BRODY SANDOVAL DATE: 10/16/16 REPORT STATUS : Draft TRANSCRIBED BY: MODL DATE: 10/16/16 ADMISSION DATE: 10/09/2016 DISCHARGE DATE: 10/16/2016 ADDENDUM: The patient was ready to be discharged yesterday, but because of the approval was pending, the patient was discharged to [facility] today on 10/16/2016. DISCHARGE DIAGNOSES: 1. Acute urinary retention secondary to severely enlarged prostate, benign prostatic hyperplasia. The patient was discharged with a Pearl and he needs to follow up with Dr. Hathaway for transurethral prostate resection. 2. Mild encephalopathy with chronic dementia, was stable. 3. Parkinson disease, newly diagnosed. 4. History of old cerebrovascular accident. 5. Acute kidney injury, resolved. 6. Persistent leukocytosis without any evidence of fever, stable. For the details of hospitalization, see discharge summary dictated by Dr. Zheng, as well as for the discharge medications, see discharge summary dictated by Dr. Zheng. The patient was discharged to [facility] today. He was in stable condition, and he needs to follow up with Dr. Hathaway, urologist, as an outpatient. DICTATED BY: Sonya Solorzano/PHILIP Brody Sandoval M.D. / [id number] CC: Sonya Solorzano M.D.
--- NOTE | ~2016-10-09 | HP ---
History And Physical [place] [address] [facility] [place]. [address] NAME: JARROD DOUGLAS : 35 STATUS : ADM IN PAT#: [id number] AGE: 81 ADM/REG DATE : 10/09/16 MR#: [id number] REPORT SERV DATE: 10/09/16 DICTATED BY: OJ NUNN DATE: 10/09/16 REPORT STATUS : Draft TRANSCRIBED BY: MODL DATE: 10/09/16 DATE OF ADMISSION: 10/09/2016 REASON FOR ADMISSION: Acute and severe hematuria. HISTORY OF PRESENT ILLNESS: This patient is an 81-year-old patient who was brought in by daughter and son-in-law this morning because he had pulled his Pearl catheter out overnight and he had severe hematuria. The patient was discharged from the hospital just yesterday and for details, please see Dr. Cassandra Farris's discharge summary. Essentially, this is a gentleman who is 81 years old with old stroke and probably vascular dementia and some chronic confusion in the past, who came in last time with signs and symptoms as outlined in history and physical exam. Anyway, he did have urinary retention and Dr. Hathaway was consulted during last admission. He did have severely enlarged prostate and urinary retention secondary to that and the plan was to keep the Pearl catheter in indefinitely until he was evaluated by Dr. Hathaway. There was some confusion as to the discharge of the patient, but apparently as the patient insisted that he would not go to an inpatient rehab or [facility] facility, he was discharged to home. Within 24 hours now, he is back because he pulled his Pearl catheter out overnight and had severe hematuria probably from trauma from pulling out the Pearl catheter. That is the only reason he is here. I examined the patient at the bedside and the patient is quite confused. He knows where he is. He is able to say his name and he is able to say his date somewhat, but he is confused with year and time. He states that his daughter and son-in-law are around and I looked for them everywhere and even had them paged, but I could not find them at the moment. Hence, history is limited. Most history is gleaned from [employer] and also from the [employer]. The patient at the present time denies any pain absolutely anywhere. He denies any headaches, blurry vision, chest pain, shortness of breath, nausea, vomiting, abdominal pain, diarrhea. He does complain of some dysuria and also states that he has noticed a lot of blood in his urine, but he states that the catheter was irritating him. At this time, he is advised to keep the catheter in as he is getting bladder flushes. He seems mildly agitated also. REVIEW OF SYSTEMS: Negative for other systems otherwise. 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 FAMILY HISTORY: Noncontributory to the current problem. Current medications for this patient and allergies include the following: ALLERGIES: THE PATIENT IS ALLERGIC TO CEPHALEXIN FROM KEFLEX AND HE GETS A RASH IN THE MOUTH AND THROAT IF HE TAKES IT BY MOUTH. THE PATIENT IS ALSO ALLERGIC TO BETA BLOCKERS, BUT THE PATIENT IS ALREADY ON BETA-SALVADOR EYE DROPS, WHICH HE STATES THAT HE CAN TOLERATE. History And Physical [address] [address] NAME: JARROD DOUGLAS : 35 STATUS : ADM IN [facility]#: [id number] AGE: 81 ADM/REG DATE : 10/09/16 MR#: [id number] REPORT SERV DATE: 10/09/16 DICTATED BY: OJ NUNN DATE: 10/09/16 REPORT STATUS : Draft TRANSCRIBED BY: PHILIP DATE: 10/09/16 HOME MEDICATIONS: Include some vitamins and calcium supplements along with metformin 850 mg p.o. b.i.d., aspirin 81 mg p.o. once a day, Norvasc 10 mg once a day, Cardura 8 mg once a day, pioglitazone 45 mg p.o. daily, timolol maleate 0.5% ophthalmic solution one drop twice daily, Xalatan eye drops, glipizide 10 mg p.o. once a day and 5 mg p.o. in the evening, omeprazole 20 mg once a day, Benicar HCT 40/12.5 once a day, Levaquin 750 mg for four more days that was remaining, atorvastatin 80 mg once a day, Plavix 75 mg once a day. PHYSICAL EXAMINATION: GENERAL: The patient is mildly agitated and slightly confused as mentioned above. He denies any pain at this time. Skin and mucosa appear fairly well hydrated. VITAL SIGNS: Show that his blood pressure is 162/85, pulse is 99 per minute, O2 saturations 97% on 2 L of oxygen. He is afebrile. By the time I went down to the ER, his hematuria has nearly cleared up as he is getting bladder irrigation with saline. HEENT: Unremarkable. NECK: There is no JVD or thyromegaly. CARDIOVASCULAR SYSTEM: S1, S2 appreciated. Sinus rhythm. No murmurs, rubs, or gallops noted. RESPIRATORY SYSTEM: Clear lungs. No rales or rhonchi noted. ABDOMEN: Soft, mildly distended, but there is no tenderness or guarding or rigidity. Bowel sounds are sluggish, but appreciated. There is no organomegaly noted. EXTREMITIES: There is mild bilateral 1+ pedal edema. Pedal pulses are well felt. NEUROLOGIC: The patient appears to be mildly agitated and confused, probably some of this is definitely chronic because of chronic encephalopathy from likely vascular dementia. There are no definitive neurological deficits that I could appreciate at this time other than above. PSYCHIATRIC: As above. MUSCULOSKELETAL: Grossly normal. LABORATORIES: Labs that I have on this patient include a CBC that was done today that shows a WBC count of 17.1, hemoglobin of 10.3, hematocrit of 30.1, and platelet count of 281. His electrolytes are normal. BUN is 23, creatinine however is elevated at 1.4. Troponin I is less than 0.02. Glucose is slightly elevated at 182, but his recent hemoglobin A1c came back at 6.8. His chest x-ray shows atelectasis in the left base, but other than that mild cardiomegaly prior CABG, but no infiltrate. His urinalysis shows a large amount of blood, also cloudy urine, some glucose, trace leukocyte esterase, and there are a few bacteria. ASSESSMENT: My assessment on this gentleman is: 1. Acute severe hematuria from trauma from pulling out his Pearl catheter-Dr. Hathaway, urologist has already been consulted and he has advised bladder irrigation with saline, which is happening now. 2. Mild acute encephalopathy, on chronic encephalopathy, this is probably secondary to maybe a urinary tract infection, maybe mild dehydration-start the patient on IV History And Physical [facility] [address] [address] NAME: JARROD DOUGLAS : 35 STATUS : ADM IN [facility]#: [id number] AGE: 81 ADM/REG DATE : 10/09/16 MR#: [id number] REPORT SERV DATE: 10/09/16 DICTATED BY: OJ NUNN DATE: 10/09/16 REPORT STATUS : Draft TRANSCRIBED BY: MODL DATE: 10/09/16 Ringer's lactate and also monitor. 3. Chronic encephalopathy from moderate vascular dementia from old cerebrovascular accident likely. I am not sure how good is the decision making capacity of this individual right now. Eventually, the patient may need at least inpatient rehab placement for some time, at least until the Pearl catheter can come out. 4. Leukocytosis. This could be secondary to trauma from the Pearl catheter being pulled out itself or could be a mild urinary tract infection as the patient has had recurrent hematurias and recurrent Pearl catheter placement and trauma to the area locally. Hence, we will start the patient on empiric Rocephin 1 g IV daily and give him one dose of vancomycin, but before giving these antibiotics, we will send off urine for culture and sensitivity. 5. Acute kidney injury with a creatinine of 1.4. This could be secondary to dehydration, hence we will hydrate with IV LR, and recheck to see how he is doing. 6. We will definitely hold his aspirin and Plavix at this time given the hematuria. We will hold his metformin and pioglitazone given acute kidney injury. We will also go ahead and hold his Benicar HCT given the elevated creatinine at this time also. We will continue the rest of the medicines and monitor him along with urologist, Dr. Hathaway. RRA/MODL Oj Nunn M.D. / [id number] CC: Sonya Rhodes M.D.
[~2016-10-09 12:36] MED LIST changes: +LEVAQUIN750 MG PO; +LIPITOR80 MG PO; +PLAVIX PO
[2016-10-09 12:52] LABS: BASOPHILS 0.1 %; BASOPHILS ABSOLUTE 0.01 10/3/uL (0.0-0.16); EOSINOPHILS 0 %; ER CBC TAT 0 Hrs 15 Mins; HEMATOCRIT 30.3 % (40.0-51.0); HEMOGLOBIN 10.4 g/dL (13.6-17.8); IMMATURE GRANULOCYTES 0.5 %; LYMPHOCYTES 6.6 %; LYMPHOCYTES ABSOLUTE 1.21 10/3/uL (0.67-4.30); MEAN CORPUS HGB CONC 34.3 g/dL (32.0-36.0); MEAN CORPUSCULAR HEMOGLOB 29.1 pg (26.0-34.0); MEAN CORPUSCULAR VOLUME 84.6 fL (80-100); MEAN PLATELET VOLUME 9.8 fL (9.2-13.0); MONOCYTES 9.5 %; MONOCYTES ABSOLUTE 1.75 10/3/uL (0.21-1.20); NEUTROPHILS 83.3 %; NEUTROPHILS ABSOLUTE 15.29 10/3/uL (2.02-8.40); PLATELET COUNT 305 10/3/uL (150-400); RBC DISTRIBUTION WIDTH 15.4 % (12.0-16.0); RED CELL COUNT 3.58 10/6/uL (4.7-6.1); WHITE BLOOD CELLS 18.4 10/3/uL (4.5-10.5)
[2016-10-09 12:53] LABS: MANUAL DIFF NO %
[2016-10-09 12:55] LABS: INTERNATIONAL NORMAL RATI 1.1 UNITS (-); PARTIAL THROMBO TIME 31.2 SEC (22.5-37.2); PROTIME (NOT ORD) 14.5 SEC (12.0-14.5)
[2016-10-09 13:00] LABS: ASCORBIC ACID (UR NOT ORDER) NEG (NEG); BILIRUBIN, URINE NEGATIVE (NEG); ER URINALYSIS TAT 0 Hrs 23 Mins; KETONE, URINE NEGATIVE (NEG); LEUKOCYTE ESTERASE(NOT OR TRACE (NEG); NITRITE (URINE) NEG (NEG); WBC (NOT ORDERED) (RFLEX) 147 (0-5)
[2016-10-09 13:05] LABS: CALCIUM, SERUM 9.1 MG/DL (8.5-10.4); CHEST PAIN PROFILE TAT 0 Hrs 28 Mins; CHLORIDE, SERUM 109 MMOL/L (96-112); CO2 (CARBON DIOXIDE) 25 MMOL/L (24-34); CREATININE 1.44 MG/DL (0.70-1.30); GFR AFRICAN AMERICAN 52 ML/MIN (>=60); GFR NON AFRICAN AMERICAN 45 ML/MIN (>=60); GLUCOSE, SERUM 182 MG/DL (60-99); POTASSIUM, SERUM 3.8 MMOL/L (3.5-5.3); SODIUM, SERUM 144 MMOL/L (135-148); TROPONIN I <0.02 NG/ML (<0.05)
[2016-10-09 13:06] LABS: BUN (BLOOD UREA NITROGEN) 23 MG/DL (6-23)
[2016-10-09 14:33] LABS: BASOPHILS 0.1 %; BASOPHILS ABSOLUTE 0.01 10/3/uL (0.0-0.16); EOSINOPHILS 0 %; HEMATOCRIT 30.1 % (40.0-51.0); HEMOGLOBIN 10.3 g/dL (13.6-17.8); IMMATURE GRANULOCYTES 0.4 %; IMMATURE GRANULOCYTES ABSOLUTE 0.06 10/3/uL (0.0-0.11); LYMPHOCYTES 7.6 %; MEAN CORPUS HGB CONC 34.2 g/dL (32.0-36.0); MEAN CORPUSCULAR HEMOGLOB 28.9 pg (26.0-34.0); MEAN CORPUSCULAR VOLUME 84.6 fL (80-100); MEAN PLATELET VOLUME 9.1 fL (9.2-13.0); MONOCYTES 9.7 %; MONOCYTES ABSOLUTE 1.66 10/3/uL (0.21-1.20); NEUTROPHILS 82.2 %; NEUTROPHILS ABSOLUTE 14.02 10/3/uL (2.02-8.40); PLATELET COUNT 281 10/3/uL (150-400); RBC DISTRIBUTION WIDTH 15.4 % (12.0-16.0); RED CELL COUNT 3.56 10/6/uL (4.7-6.1); WHITE BLOOD CELLS 17.1 10/3/uL (4.5-10.5)
[2016-10-09 14:37] LABS: MANUAL DIFF NO %
[2016-10-09] MEDS ORDERED: GLUCOTROL5 PO (14:43)
[2016-10-09 15:03] LABS: ASCORBIC ACID (UR NOT ORDER) NEG (NEG); BILIRUBIN, URINE NEGATIVE (NEG); KETONE, URINE NEGATIVE (NEG); LEUKOCYTE ESTERASE(NOT OR TRACE (NEG); NITRITE (URINE) NEG (NEG); WBC (NOT ORDERED) (RFLEX) 23 (0-5)
[2016-10-09 15:05] LABS: ER URINALYSIS TAT 0 Hrs 38 Mins
[2016-10-09 22:17] LABS: HEMATOCRIT 29.4 % (40.0-51.0); HEMOGLOBIN 9.8 g/dL (13.6-17.8)
[2016-10-10 04:28] LABS: BASOPHILS 0.1 %; BASOPHILS ABSOLUTE 0.02 10/3/uL (0.0-0.16); EOSINOPHILS 0.1 %; EOSINOPHILS ABSOLUTE 0.01 10/3/uL (0.0-0.53); HEMATOCRIT 30.9 % (40.0-51.0); HEMOGLOBIN 10.5 g/dL (13.6-17.8); IMMATURE GRANULOCYTES 0.4 %; IMMATURE GRANULOCYTES ABSOLUTE 0.07 10/3/uL (0.0-0.11); LYMPHOCYTES 8.8 %; LYMPHOCYTES ABSOLUTE 1.63 10/3/uL (0.67-4.30); MEAN CORPUSCULAR VOLUME 85.4 fL (80-100); MEAN PLATELET VOLUME 10.3 fL (9.2-13.0); MONOCYTES 10.8 %; NEUTROPHILS 79.8 %; NEUTROPHILS ABSOLUTE 14.79 10/3/uL (2.02-8.40); PLATELET COUNT 322 10/3/uL (150-400); RBC DISTRIBUTION WIDTH 15.5 % (12.0-16.0); RED CELL COUNT 3.62 10/6/uL (4.7-6.1); WHITE BLOOD CELLS 18.5 10/3/uL (4.5-10.5)
[2016-10-10 04:29] LABS: MANUAL DIFF NO %
[2016-10-10 04:40] LABS: BUN (BLOOD UREA NITROGEN) 20 MG/DL (6-23); CALCIUM, SERUM 8.9 MG/DL (8.5-10.4); CHLORIDE, SERUM 108 MMOL/L (96-112); CO2 (CARBON DIOXIDE) 26 MMOL/L (24-34); CREATININE 1.22 MG/DL (0.70-1.30); GFR AFRICAN AMERICAN 64 ML/MIN (>=60); GFR NON AFRICAN AMERICAN 55 ML/MIN (>=60); POTASSIUM, SERUM 3.4 MMOL/L (3.5-5.3); SODIUM, SERUM 139 MMOL/L (135-148)
[2016-10-10 04:43] LABS: GLUCOSE, SERUM 66 MG/DL (60-99)
[2016-10-10 14:21] LABS: HEMATOCRIT 31.3 % (40.0-51.0); HEMOGLOBIN 10.3 g/dL (13.6-17.8)
[2016-10-11 05:06] LABS: BASOPHILS 0.1 %; BASOPHILS ABSOLUTE 0.01 10/3/uL (0.0-0.16); EOSINOPHILS 0 %; HEMATOCRIT 31.5 % (40.0-51.0); HEMOGLOBIN 10.6 g/dL (13.6-17.8); IMMATURE GRANULOCYTES 0.3 %; IMMATURE GRANULOCYTES ABSOLUTE 0.06 10/3/uL (0.0-0.11); LYMPHOCYTES 5.5 %; LYMPHOCYTES ABSOLUTE 0.97 10/3/uL (0.67-4.30); MANUAL DIFF NO %; MEAN CORPUS HGB CONC 33.7 g/dL (32.0-36.0); MEAN CORPUSCULAR HEMOGLOB 28.6 pg (26.0-34.0); MEAN CORPUSCULAR VOLUME 85.1 fL (80-100); MEAN PLATELET VOLUME 10.5 fL (9.2-13.0); MONOCYTES 5.6 %; MONOCYTES ABSOLUTE 0.99 10/3/uL (0.21-1.20); NEUTROPHILS 88.5 %; PLATELET COUNT 311 10/3/uL (150-400); RBC DISTRIBUTION WIDTH 15.5 % (12.0-16.0); WHITE BLOOD CELLS 17.5 10/3/uL (4.5-10.5)
[2016-10-11 05:23] LABS: CALCIUM, SERUM 8.9 MG/DL (8.5-10.4); CHLORIDE, SERUM 108 MMOL/L (96-112); CO2 (CARBON DIOXIDE) 24 MMOL/L (24-34); CREATININE 1.44 MG/DL (0.70-1.30); GFR AFRICAN AMERICAN 52 ML/MIN (>=60); GFR NON AFRICAN AMERICAN 45 ML/MIN (>=60); POTASSIUM, SERUM 4.1 MMOL/L (3.5-5.3); SODIUM, SERUM 137 MMOL/L (135-148)
[2016-10-11 05:24] LABS: BUN (BLOOD UREA NITROGEN) 27 MG/DL (6-23); GLUCOSE, SERUM 246 MG/DL (60-99)
[2016-10-12 04:57] LABS: BASOPHILS 0.1 %; BASOPHILS ABSOLUTE 0.02 10/3/uL (0.0-0.16); EOSINOPHILS 0.5 %; EOSINOPHILS ABSOLUTE 0.08 10/3/uL (0.0-0.53); HEMOGLOBIN 10.1 g/dL (13.6-17.8); IMMATURE GRANULOCYTES 0.7 %; LYMPHOCYTES 11.2 %; LYMPHOCYTES ABSOLUTE 1.64 10/3/uL (0.67-4.30); MEAN CORPUS HGB CONC 33.7 g/dL (32.0-36.0); MEAN CORPUSCULAR HEMOGLOB 28.7 pg (26.0-34.0); MEAN CORPUSCULAR VOLUME 85.2 fL (80-100); MEAN PLATELET VOLUME 10.5 fL (9.2-13.0); MONOCYTES 10.5 %; MONOCYTES ABSOLUTE 1.54 10/3/uL (0.21-1.20); NEUTROPHILS ABSOLUTE 11.25 10/3/uL (2.02-8.40); PLATELET COUNT 301 10/3/uL (150-400); RBC DISTRIBUTION WIDTH 15.5 % (12.0-16.0); RED CELL COUNT 3.52 10/6/uL (4.7-6.1); WHITE BLOOD CELLS 14.6 10/3/uL (4.5-10.5)
[2016-10-12 04:59] LABS: MANUAL DIFF NO %
[2016-10-12 05:08] LABS: CALCIUM, SERUM 8.3 MG/DL (8.5-10.4); CHLORIDE, SERUM 109 MMOL/L (96-112); CO2 (CARBON DIOXIDE) 26 MMOL/L (24-34); CREATININE 0.98 MG/DL (0.70-1.30); GFR AFRICAN AMERICAN 83 ML/MIN (>=60); GFR NON AFRICAN AMERICAN 72 ML/MIN (>=60); POTASSIUM, SERUM 3.3 MMOL/L (3.5-5.3)
[2016-10-12 05:19] LABS: BUN (BLOOD UREA NITROGEN) 22 MG/DL (6-23); GLUCOSE, SERUM 48 MG/DL (60-99); SODIUM, SERUM 144 MMOL/L (135-148)
[2016-10-13 04:47] LABS: BASOPHILS 0.2 %; BASOPHILS ABSOLUTE 0.02 10/3/uL (0.0-0.16); EOSINOPHILS 2.2 %; EOSINOPHILS ABSOLUTE 0.28 10/3/uL (0.0-0.53); HEMATOCRIT 28.4 % (40.0-51.0); HEMOGLOBIN 9.7 g/dL (13.6-17.8); IMMATURE GRANULOCYTES 1.1 %; IMMATURE GRANULOCYTES ABSOLUTE 0.14 10/3/uL (0.0-0.11); LYMPHOCYTES 11.3 %; LYMPHOCYTES ABSOLUTE 1.46 10/3/uL (0.67-4.30); MEAN CORPUS HGB CONC 34.2 g/dL (32.0-36.0); MEAN CORPUSCULAR HEMOGLOB 28.5 pg (26.0-34.0); MEAN CORPUSCULAR VOLUME 83.5 fL (80-100); MEAN PLATELET VOLUME 10.1 fL (9.2-13.0); MONOCYTES 11.9 %; MONOCYTES ABSOLUTE 1.54 10/3/uL (0.21-1.20); NEUTROPHILS 73.3 %; NEUTROPHILS ABSOLUTE 9.47 10/3/uL (2.02-8.40); PLATELET COUNT 263 10/3/uL (150-400); RBC DISTRIBUTION WIDTH 15.5 % (12.0-16.0); WHITE BLOOD CELLS 12.9 10/3/uL (4.5-10.5)
[2016-10-13 04:50] LABS: MANUAL DIFF NO %
[2016-10-14 06:21] LABS: BASOPHILS 0.3 %; BASOPHILS ABSOLUTE 0.04 10/3/uL (0.0-0.16); EOSINOPHILS 1.8 %; EOSINOPHILS ABSOLUTE 0.28 10/3/uL (0.0-0.53); HEMATOCRIT 28.8 % (40.0-51.0); HEMOGLOBIN 9.8 g/dL (13.6-17.8); IMMATURE GRANULOCYTES 2.2 %; IMMATURE GRANULOCYTES ABSOLUTE 0.33 10/3/uL (0.0-0.11); LYMPHOCYTES 10.5 %; LYMPHOCYTES ABSOLUTE 1.61 10/3/uL (0.67-4.30); MANUAL DIFF NO %; MEAN CORPUSCULAR HEMOGLOB 28.2 pg (26.0-34.0); MEAN CORPUSCULAR VOLUME 82.8 fL (80-100); MEAN PLATELET VOLUME 10.1 fL (9.2-13.0); MONOCYTES 10.9 %; MONOCYTES ABSOLUTE 1.66 10/3/uL (0.21-1.20); NEUTROPHILS 74.3 %; NEUTROPHILS ABSOLUTE 11.37 10/3/uL (2.02-8.40); PLATELET COUNT 282 10/3/uL (150-400); RBC DISTRIBUTION WIDTH 15.3 % (12.0-16.0); RED CELL COUNT 3.48 10/6/uL (4.7-6.1); WHITE BLOOD CELLS 15.3 10/3/uL (4.5-10.5)
[2016-10-14 06:33] LABS: BUN (BLOOD UREA NITROGEN) 17 MG/DL (6-23); CALCIUM, SERUM 7.8 MG/DL (8.5-10.4); CHLORIDE, SERUM 106 MMOL/L (96-112); CO2 (CARBON DIOXIDE) 25 MMOL/L (24-34); CREATININE 0.97 MG/DL (0.70-1.30); GFR AFRICAN AMERICAN 85 ML/MIN (>=60); GFR NON AFRICAN AMERICAN 73 ML/MIN (>=60); GLUCOSE, SERUM 140 MG/DL (60-99); POTASSIUM, SERUM 3.3 MMOL/L (3.5-5.3); SODIUM, SERUM 139 MMOL/L (135-148)
== END 2016-10-16 16:43 | DRG 698 ==
LOC: ER 12:36 → 2SO 15:19
PROVIDERS: Emergency Medicine
DX: T83.83XA Hemorrhage due to genitourinary prosthetic devices, implants and grafts, initial encounter (principal); G93.41 Metabolic encephalopathy; N17.9 Acute kidney failure, unspecified; Q21.1 Atrial septal defect; N39.0 Urinary tract infection, site not specified; G20 Parkinson's disease; G31.83 Neurocognitive disorder with Lewy bodies; N40.1 Benign prostatic hyperplasia with lower urinary tract symptoms; E11.9 Type 2 diabetes mellitus without complications; I10 Essential (primary) hypertension; I25.10 Atherosclerotic heart disease of native coronary artery without angina pectoris; F01.50 Vascular dementia, unspecified severity, without behavioral disturbance, psychotic disturbance, mood disturbance, and anxiety; E53.8 Deficiency of other specified B group vitamins; F02.80 Dementia in other diseases classified elsewhere, unspecified severity, without behavioral disturbance, psychotic disturbance, mood disturbance, and anxiety; H40.9 Unspecified glaucoma; I69.319 Unspecified symptoms and signs involving cognitive functions following cerebral infarction; Z88.1 Allergy status to other antibiotic agents; Z95.1 Presence of aortocoronary bypass graft; Z86.73 Personal history of transient ischemic attack (TIA), and cerebral infarction without residual deficits; Z98.890 Other specified postprocedural states; Z82.49 Family history of ischemic heart disease and other diseases of the circulatory system
CPT/HCPCS: 36415; 70553; 71010; 80048; 81001; 82330; 82962; 83605; 83735; 84132; 84484; 85014; 85018; 85025; 85610; 85730; 86850; 86900; 86901; 86920; 87040; 87086; 92610-GN; 93005; 96374; 97110-GO; 97110-GP; 97116-GP; 97163-GP; 97166-GO; 97530-GP; 97535-GO; 99285; A9270-GY; A9577; G8978-CK-GP; G8979-CJ-GP; G8987-CK-GO; G8988-CJ-GO; G8996-CI-GN; G8997-CI-GN; G8998-CI-GN; J1956; J3370